=== PATIENT | male | born 1975 | race Caucasian/White ===

== ENCOUNTER 2020-04-06 03:45 | Emergency (ER) | payer MEDICAID ==
[~2020-04-06] VITALS: Ht 172.7 cm; Wt 88.8 kg
[2020-04-06] MEDS ORDERED: SODIUM CHLORIDE 0.9% 1,000 ML IV ONE (05:01)
[2020-04-06 05:23] LABS: CHLORIDE 96 mEq/L (98-107)
[2020-04-06 05:25] LABS: BASOPHILS % 0.5 % (0.0-2.0); EOSINOPHILS % 0.5 % (0.0-5.0); HEMATOCRIT. 41.4 % (42.0-52.0); HEMOGLOBIN. 14.4 g/dL (14.0-18.0); LYMPHOCYTES % 22.8 % (20.0-50.0); MEAN CORPUSCULAR HEMOGLOBIN 29.7 pg (28.0-32.0); MEAN CORPUSCULAR VOLUME 85.1 fL (80.0-94.0); MEAN PLATELET VOLUME 9.4 fl (7.4-10.4); MONOCYTES % 7.9 % (2.0-8.0); NEUTROPHILS % 68.3 % (40.0-76.0); PLATELET 170 x1000/uL (130-400); RED BLOOD CELL COUNT 4.86 mill/uL (4.7-6.1); RED CELL DISTRIBUTION WIDTH 13.5 % (11.6-14.6)
[2020-04-06 05:30] LABS: BETA HYDROXYBUTYRATE 0.6 mMol/L (0.0-0.3)
[2020-04-06] MEDS ORDERED: INSULIN REGULAR (HUMULIN R) 300UNITS/3ML SUBCUT ONE (05:45)
[2020-04-06 06:07] LABS: CLARITY URINE CLEAR (CLEAR); COLOR URINE YELLOW (YELLOW); KETONES URINE 1+ (NEGATIVE); LEUKOCYTE ESTERASE URINE NEGATIVE (NEGATIVE); NITRITE URINE NEGATIVE (NEGATIVE); OCCULT BLOOD URINE NEGATIVE (NEGATIVE); PH URINE 5.5 (4.5-8.0); PROTEIN URINE NEGATIVE (NEGATIVE); SPECIFIC GRAVITY URINE 1.027 (1.005-1.030); UROBILINOGEN URINE 0.2 E.U./dL (0.2-1.0)
[2020-04-06 07:00] VITALS: BP 131/89
== END 2020-04-06 07:00 | disposition home or self-care (01) ==
LOC: ER 03:45
DX: E11.65 Type 2 diabetes mellitus with hyperglycemia (principal); I10 Essential (primary) hypertension; R00.0 Tachycardia, unspecified
CPT/HCPCS: 36415; 80053; 81003; 82010; 82962; 84484; 85025; 93005; 96360; 96372; 99284; J1815; J7030

== ENCOUNTER 2020-04-08 23:32 | Emergency (ER) | payer MEDICAID ==
[~2020-04-08] VITALS: Ht 172.7 cm; Wt 88.0 kg
[2020-04-09] MEDS ORDERED: ACETAMINOPHEN 325MG TABLET PO ONE (01:45)
[2020-04-09 02:25] VITALS: BP 135/92
== END 2020-04-09 02:27 | disposition home or self-care (01) ==
LOC: ER 23:32
DX: E11.65 Type 2 diabetes mellitus with hyperglycemia (principal); I10 Essential (primary) hypertension; Z98.890 Other specified postprocedural states
CPT/HCPCS: 82962; 93005; 99283